=== PATIENT | male | born 1965 | race Caucasian/White ===

== ENCOUNTER 2017-07-21 23:12 | Inpatient (IN) | payer OTHER ==
[~2017-07-21] VITALS: Ht 180.3 cm; Wt 70.8 kg
[~2017-07-21 23:12] MED LIST: ASPIRIN325 M2 PO
[2017-07-21 23:36] VITALS: BP 162/81
--- NOTE | 2017-07-21 23:36 | ED GENERAL ADULT ---
History of Present Illness General Chief Complaint: General Adult Stated Complaint: "SWEATING, SHAKING, LT SIDE MIGRAIN" Vital Signs & Intake/Output Vital Signs & Intake/Output Vital Signs Date Time Temp Pulse Resp B/P B/P Pulse O2 O2 Flow FiO2 Mean Ox Delivery Rate 07/22 2335 97.7 81 18 162/81 07/21 2324 98 Room Air 07/21 2320 97.7 81 18 16281 98 Room Air Allergies Coded Allergies: No Known Allergies (05/27/17) Reconcile Medications Aspirin (Aspirin*) (Unknown Strength) TABLET (Unknown Dose) PO ONCE CHEST PAIN (Reported) Triage Note: PT FROM HOME C/O ETOH WITHDRAWL. PT STATES HE IS AN ALCOHOLIC AND DRINKS WHISKEY DAILY. PTS LAST DRINK WAS 07/20/17 AROUND [id number]. PT CANNOT REMEMBER EXACTLY HOW MUCH HE DRANK LAST NIGHT, "MAYBE A 1/2 BOTTLE" PT STATES 2X WEEKS DRINKING CONSTANTLY, PRIOR TO THOSE WEEKS PT WAS SOBER FOR A "FEW WEEKS" PER PT. PT IS DIAPHORETIC, CLAMMY, PALE IN TRIAGE. VSS. PT BROUGHT TO 7. Past History Travel History Traveled to [place] past 21 day No Medical History Neurological: NONE EENT: NONE Cardiovascular: NONE Respiratory: NONE Gastrointestinal: NONE Hepatic: NONE Renal: NONE Musculoskeletal: NONE Psychiatric: alcohol dependence, anxiety, depression Endocrine: NONE Surgical History Surgical History: non-contributory Psychosocial History What is your primary language Maltese Tobacco Use: Current Daily Use Daily Tobacco Use Amount/Type: => 5 Cigarettes daily ETOH Use: alcoholic Illicit Drug Use: denies illicit drug use Progress Plan of Care: Orders Procedure Date/time Status URINE DRUG SCREEN FOR ER ONLY 07/22 2335 Active ETHANOL 07/22 2335 Active XRY-PORTABLE CHEST XRAY 07/21 2334 Active TROPONIN LEVEL 07/21 2334 Active LIPASE 07/21 2334 Active HEPATIC FUNCTION PANEL 07/21 2334 Active CBC WITHOUT DIFFERENTIAL 07/21 2334 Active BASIC METABOLIC PANEL 07/21 2334 Active AMYLASE 07/21 2334 Active EKG 07/21 2334 Active Current Medications Sig/Vazquez Start time Last Medication Dose Stop Time Status Admin Lorazepam 2 MG ONE ONE 07/21 2344 UNVr (Ativan) 07/21 2345 Departure Departure Condition: Stable Referrals: Patient Has No Primary Care Dr (PCP/Family) Departure Forms: Customer Survey General Discharge Information
--- NOTE | 2017-07-21 23:40 | ED GENERAL ADULT ---
See Addendum History of Present Illness General Chief Complaint: General Adult Stated Complaint: "SWEATING, SHAKING, LT SIDE MIGRAIN" Source: patient Exam Limitations: no limitations Vital Signs & Intake/Output Vital Signs & Intake/Output Vital Signs Date Time Temp Pulse Resp B/P B/P Pulse O2 O2 Flow FiO2 Mean Ox Delivery Rate 07/22 1350 97.2 65 20 141/90 07/22 1347 97.2 07/22 1340 97.2 65 20 141/90 07/22 1338 97.2 65 20 141/90 96 Room Air 07/22 1105 97.9 76 18 167/86 07/22 1104 97.9 76 18 167/86 97 Room Air 07/22 0913 98.5 76 16 179/90 07/22 0905 98.5 76 16 179/90 07/22 0904 98.6 73 16 172/90 96 Room Air Room Air 07/22 0636 98.3 78 18 148/81 07/22 0635 98.3 78 18 148/81 96 Room Air 07/22 0417 98.1 78 18 174/90 07/22 0417 98.1 78 18 174/90 96 Room Air 07/22 0332 98.0 74 18 168/89 07/22 0332 98.0 74 18 168/89 97 Room Air 07/22 0238 98.0 77 18 163/92 07/22 0235 98.0 77 18 163/92 99 Room Air 07/22 0039 97.8 68 18 159/83 07/22 0038 97.8 68 18 159/83 99 Room Air 07/21 2336 97.7 81 18 162/81 07/21 2324 98 Room Air 07/21 2321 97.7 81 18 162/81 98 Room Air ED Intake and Output 07/22 0000 07/21 1200 Intake Total Output Total Balance Patient 1150 lb Weight Weight Reported by Patient Measurement Method Allergies Coded Allergies: No Known Allergies (05/27/17) Triage Note: PT FROM HOME C/O ETOH WITHDRAWL. PT STATES HE IS AN ALCOHOLIC AND DRINKS WHISKEY DAILY. PTS LAST DRINK WAS 07/20/17 AROUND [id number]. PT CANNOT REMEMBER EXACTLY HOW MUCH HE DRANK LAST NIGHT, "MAYBE A 1/2 BOTTLE" PT STATES 2X WEEKS DRINKING CONSTANTLY, PRIOR TO THOSE WEEKS PT WAS SOBER FOR A "FEW WEEKS" PER PT. PT IS DIAPHORETIC, CLAMMY, PALE IN TRIAGE. VSS. PT BROUGHT TO RM 7. Triage Nurses Notes Reviewed? yes Onset: Gradual Duration: hour(s): Timing: recent history Injury Environment: home Severity: moderate Modifying Factors: Improves With: rest. Associated Symptoms: diaphoresis HPI: 51 yo gentleman h/o etoh abuse, asthma presents with tremors, nausea, vomiting, body aches for the past day after he stopped drinking yesterday evening. He notes, "I drink a lot... all the time... I've been drinking a bit more heavily the past few weeks." He denies every having had a seizure. He is otherwise well. (Juan NETTLES,Ash Matos) Reconcile Medications Escitalopram Oxalate (Lexapro) 10 MG TABLET 1 TAB PO DAILY MENTAL HEALTH ( Reported) Gabapentin (Neurontin) (Unknown Strength) CAPSULE (Unknown Dose) PO AD UNKNOWN (Reported) Prednisone (Unknown Strength) TABLET (Unknown Dose) PO AD STEROID (Reported) Trazodone HCl (Unknown Strength) TABLET (Unknown Dose) PO AD SLEEP (Reported) (Pravin Quintanilla MD) Past History Travel History Traveled to [place] past 21 day No Medical History Any Pertinent Medical History? see below for history Neurological: NONE EENT: NONE Cardiovascular: NONE Respiratory: NONE Gastrointestinal: NONE Hepatic: NONE Renal: NONE Musculoskeletal: NONE Psychiatric: alcohol dependence, anxiety, depression Endocrine: NONE Surgical History Surgical History: non-contributory Psychosocial History What is your primary language Liberian Tobacco Use: Current Daily Use Daily Tobacco Use Amount/Type: => 5 Cigarettes daily ETOH Use: alcoholic Illicit Drug Use: denies illicit drug use Family History Hx Contributory? No (Juan NETTLES,Ash Matos) Review of Systems Review of Systems Constitutional: Reports: no symptoms. EENTM: Reports: no symptoms. Respiratory: Reports: no symptoms. Cardiovascular: Reports: no symptoms. GI: Reports: no symptoms. Genitourinary: Reports: no symptoms. Musculoskeletal: Reports: no symptoms. Skin: Reports: no symptoms. Neurological/Psychological: Reports: no symptoms. Hematologic/Endocrine: Reports: no symptoms. Immunologic/Allergic: Reports: no symptoms. All Other Systems: Reviewed and Negative (Ash Martinez MD) Physical Exam Physical Exam General Appearance: well developed/nourished, mild distress, moderate distress Head: atraumatic, normal appearance Eyes: Bilateral: normal appearance. Ears, Nose, Throat: normal pharynx, normal ENT inspection Neck: normal inspection, supple, full range of motion Respiratory: normal breath sounds, chest non-tender, no respiratory distress, quiet respiration, lungs clear Cardiovascular: regular rate/rhythm Gastrointestinal: normal bowel sounds, soft, non-tender, no organomegaly Back: normal inspection, normal range of motion Extremities: normal inspection, normal capillary refill, normal range of motion, no edema Neurologic/Psych: no motor/sensory deficits, awake, alert, oriented x 3 Skin: intact, normal color, warm/dry Core Measures ACS in differential dx? No CVA/TIA Diagnosis: No Sepsis Present: No Sepsis Focused Exam Completed? No (Juan NETTLES,Ash Matos) Progress Differential Diagnoses I considered the following diagnoses in my evaluation of the patient: alcohol detox vs electrolyte abnormality vs other. Plan of Care: Orders Procedure Date/time Status CBC WITHOUT DIFFERENTIAL 07/23 06 Active BASIC ELECTROLYTES PLUS BUN&CR 07/23 06 Active Heart Healthy Diet 07/22 B Active Patient Data 07/22 1415 Active OXYGEN SETUP (GEN) 07/22 1401 Active Saline Lock 07/22 1401 Active Admit to inpatient 07/22 1401 Active Vital Signs 07/22 1401 Active Activity/Ambulation 07/22 1401 Active Code Status 07/22 1401 Active Pathway - chart 07/21 2339 Active CIWA 07/21 233 Active CASE MANAGEMENT CONSULT 07/21 2339 Active ETHANOL 07/21 2336 Complete URINE DRUG SCREEN FOR ER ONLY 07/22 2335 Complete TROPONIN LEVEL 07/215 Complete LIPASE 07/21 2335 Complete HEPATIC FUNCTION PANEL 07/215 Complete CBC WITHOUT DIFFERENTIAL 07/21 2335 Complete BASIC METABOLIC PANEL 07/21 2335 Complete AMYLASE 07/21 2335 Complete EKG 07/21 233 Active Intake & Output 07/21 2324 Active Current Medications Sig/Vazquez Start time Last Medication Dose Stop Time Status Admin Clonidine 0.1 MG TID 07/22 09 UNVr 07/22 (Catapres) 1350 Gabapentin 300 MG Q8 07/22 09 UNVr 07/22 (Neurontin) 1350 Laboratory Tests 07/22/17 0247: Urine Opiates Screen < 100, Methadone Screen < 40, Barbiturate Screen < 60, Ur Phencyclidine Scrn < 6.00, Amphetamines Screen < 100, U Benzodiazepines Scrn < 85, Urine Cocaine Screen < 50, Urine Cannabis Screen < 5.00 07/21/172336: Anion Gap 15, Estimated GFR > 60, BUN/Creatinine Ratio 10.0, Glucose 140 H, Calcium 9.3, Total Bilirubin 1.5 H, Direct Bilirubin 0.4, AST 61 H, ALT 68, Alkaline Phosphatase 116, Troponin I < 0.01, Total Protein 7.1, Albumin 4.9, Amylase 95, Lipase 348 H, CBC w Diff NO MAN DIFF REQ, RBC 4.63 L, MCV 94.4 H, MCH 31.9 H, MCHC 33.8, RDW 14.1, MPV 8.7, Gran % 75.3 H, Lymphocytes % 18.8 L , Monocytes % 5.1, Eosinophils % 0.3, Basophils % 0.5, Absolute Granulocytes 5.5 , Absolute Lymphocytes 1.4, Absolute Monocytes 0.4, Absolute Eosinophils 0, Absolute Basophils 0, Serum Alcohol < 10.0 07/21/172335: Serum Alcohol Cancelled Diagnostic Imaging: Viewed by Me: Radiology Read. Discussed w/RAD: Radiology Read. CXR Impression: PATIENT: RONNY SILVEIRA PRESENT AGE : 51 PATIENT ACCOUNT NO: [id number] : 66 LOCATION: [facility] ORDERING PHYSICIAN: Ash Martinez MD SERVICE DATE: 07/21/17 EXAM TYPE: RAD - XRY-PORTABLE CHEST XRAY EXAMINATION: XR PORTABLE CHEST CLINICAL INFORMATION: Dyspnea COMPARISON: 05/27/2017 TECHNIQUE: Portable frontal view of the chest was obtained. FINDINGS: The lungs are clear with no focal consolidation. No evidence of pneumothorax, pulmonary edema, or pleural effusions. The cardiomediastinal silhouette is unremarkable. No acute osseous findings. IMPRESSION: No acute cardiopulmonary findings. DICTATED BY: Jean Claude Posada MD DATE/TIME DICTATED:07/21/172352 TOY PAINTER:FRANK DATE/TIME TRANSCRIBED:07/21/172352 CONFIDENTIAL, DO NOT COPY WITHOUT APPROPRIATE AUTHORIZATION. <Electronically signed in Other Vendor System> SIGNED BY: Jean Claude Posada MD 07/21/172356 Initial ED EKG: nsr, no acute changes. incomplete rbbb Hand-Off Endorsed To: Pravin Quintanilla MD Endorsed Time: 0700 Pending: consult, labs (Ash Martinez MD) Comments: Certified by case management for hospitalization. (Pravin Quintanilla MD) Departure Departure Disposition: STILL A PATIENT Condition: Stable Clinical Impression Primary Impression: Alcohol withdrawal Referrals: Patient Has No Primary Care Dr (PCP/Family) Departure Forms: Customer Survey General Discharge Information (Ash Martinez MD) Alcohol Withdrawl Admission ED Alcohol Detox Admission d/t: Acute MedCond D/T Alcohol Comments: Improved with ativan, gabapentin, clonidine. (Pravin Quintanilla MD) Critical Care Note Critical Care Note Critical Care Time: non-applicable (Juan NETTLES,Ash Matos)
[2017-07-21 23:49] LABS: ABSOLUTE BASOPHIL COUNT 0 /CUMM (0.0-0.2); ABSOLUTE EOSINOPHIL COUNT 0 /CUMM (0.0-0.7); ABSOLUTE GRANULOCYTE CT 5.5 /CUMM (1.4-6.5); ABSOLUTE LYMPH COUNT 1.4 /CUMM (1.2-3.4); ABSOLUTE MONOCYTE COUNT 0.4 /CUMM (0.10-0.60); BASOPHIL % 0.5 % (0.0-2.0); EOSINOPHIL % 0.3 % (0-5); GRANULOCYTE % 75.3 % (42.2-75.2); HEMATOCRIT 43.7 % (42-52); MEAN CORPUSCULAR HGB 31.9 PG (27.0-31.0); MEAN CORPUSCULAR HGB CONC 33.8 G/DL (33.0-37.0); MEAN CORPUSCULAR VOLUME 94.4 FL (80.0-94.0); MEAN PLATELET VOLUME 8.7 FL (7.4-10.4); PLATELET COUNT 144 /CUMM (130-400); RBC DISTRIBUTION WIDTH 14.1 % (11.5-14.5); RED BLOOD CELL CT 4.63 /CUMM (4.70-6.10); WHITE BLOOD CELL COUNT 7.3 /CUMM (4.8-10.8)
--- NOTE | 2017-07-21 23:57 | RADIOLOGY REPORT ---
EXAMINATION: XR PORTABLE CHEST CLINICAL INFORMATION: Dyspnea COMPARISON: 05/27/2017 TECHNIQUE: Portable frontal view of the chest was obtained. FINDINGS: The lungs are clear with no focal consolidation. No evidence of pneumothorax, pulmonary edema, or pleural effusions. The cardiomediastinal silhouette is unremarkable. No acute osseous findings. IMPRESSION: No acute cardiopulmonary findings.
[2017-07-22] VITALS (13 sets, daily range): BP systolic 126–179; BP diastolic 74–100
[2017-07-22] MEDS ORDERED: LEXAPRO10 M1 PO (13:57)
[2017-07-22] MEDS ORDERED: TRAZODONE HCL50 M1 PO (13:59)
[2017-07-22] MEDS ORDERED: NEURONTIN300 M1 PO (13:59)
[2017-07-22] MEDS ORDERED: PREDNISONE5 M1 PO (13:59)
--- NOTE | 2017-07-22 14:35 | History & Physical ---
Gilma Orlando MD,[facility] 07/22/17 1423: General Information and HPI MD Statement: I have seen and personally examined RONNY SILVEIRA and documented this H&P. The patient is a 51 year old M who presented with a patient stated chief complaint of sweating and shakings. Source of Information: patient History of Present Illness: Patient is 51 y M with PMH of alcohol abuse, anxiety, depression (suicidal ideation several years ago), asthma, smoking presented to the ED with chief complaint of sweating and shaking. Patient noted that he drinks about one bottle of whiskey in daily base for the last several years, he attempted several times to cut down drinking in the past with no success with increased drinking over the last few months. The last drink was whiskey again around 9pm, 07/20/17. 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 He was admitted 4 times for alcohol rehabilitation in the past, denied any alcohol related complications such as seizure or ICU admission. He was discharged from the last one a few months ago. Of note patient was last seen in ED for chest pain and was discharged after rulling out cardiac reasons. He reported anxiety, but no suicidal ideation at this time, no shortness of breathing, no chest pain. He reported smoking 1 PPD for the last many years, he also reported remote use of recreational drugs few years ago. Allergies/Medications Allergies: Coded Allergies: No Known Allergies (05/27/17) Home Med list Escitalopram Oxalate (Lexapro) 10 MG TABLET 1 TAB PO DAILY MENTAL HEALTH ( Reported) Gabapentin (Neurontin) (Unknown Strength) CAPSULE (Unknown Dose) PO AD UNKNOWN (Reported) Trazodone HCl (Unknown Strength) TABLET (Unknown Dose) PO AD SLEEP (Reported) Past History Travel History Traveled to [place] past 21 day No Medical History Neurological: NONE EENT: NONE Cardiovascular: NONE Respiratory: NONE Gastrointestinal: NONE Hepatic: NONE Renal: NONE Musculoskeletal: NONE Psychiatric: alcohol dependence, anxiety, depression Endocrine: NONE Surgical History Surgical History: non-contributory Past Family/Social History Psychosocial History ETOH Use: alcoholic Illicit Drug Use: denies illicit drug use Review of Systems Review of Systems Constitutional: Reports: see HPI. Exam & Diagnostic Data Last 24 Hrs of Vital Signs/I&O Vital Signs Date Time Temp Pulse Resp B/P B/P Pulse O2 O2 Flow FiO2 Mean Ox Delivery Rate 07/22 1350 97.2 65 20 141/90 07/22 1347 97.2 07/22 1340 97.2 65 20 141/90 07/22 1338 97.2 65 20 141/90 96 Room Air 07/22 1105 97.9 76 18 167/86 07/22 1104 97.9 76 18 167/86 97 Room Air 07/22 0913 98.5 76 16 179/90 07/22 0905 98.5 76 16 179/90 07/22 0904 98.6 73 16 172/90 96 Room Air Room Air 07/22 0636 98.3 78 18 148/81 07/22 0635 98.3 78 18 148/81 96 Room Air 07/22 0417 98.1 78 18 174/90 07/22 0417 98.1 78 18 174/90 96 Room Air 07/22 0332 98.0 74 18 168/89 07/22 0332 98.0 74 18 168/89 97 Room Air 07/22 0238 98.0 77 18 163/92 07/22 0235 98.0 77 18 163/92 99 Room Air 07/22 0039 97.8 68 18 159/83 07/22 0038 97.8 68 18 159/83 99 Room Air 07/21 2336 97.7 81 18 162/81 07/21 2324 98 Room Air 07/21 2321 97.7 81 18 162/81 98 Room Air Intake & Output 07/22 1600 07/22 0800 07/22 0000 Intake Total Output Total Balance Patient 150 lb 1150 lb Weight Weight Reported by Patient Measurement Method Physical Exam General Appearance Alert, Oriented X3, Cooperative, anxious Skin Temp/Moisture Exam: Warm/Dry Sepsis Skin Exam (color): Normal for Ethnicity HEENT Atraumatic, EOMI Cardiovascular Normal S1, Normal S2 Lungs wheezing Abdomen Soft, No Tenderness Neurological Normal Speech, Strength at 5/5 X4 Ext Extremities No Edema Last 24 Hrs of Labs/Tien: Laboratory Tests 07/22/17 0247: Urine Opiates Screen < 100, Methadone Screen < 40, Barbiturate Screen < 60, Ur Phencyclidine Scrn < 6.00, Amphetamines Screen < 100, U Benzodiazepines Scrn < 85, Urine Cocaine Screen < 50, Urine Cannabis Screen < 5.00 07/21/17 2337: Anion Gap 15, Estimated GFR > 60, BUN/Creatinine Ratio 10.0, Glucose 140 H, Calcium 9.3, Total Bilirubin 1.5 H, Direct Bilirubin 0.4, AST 61 H, ALT 68, Alkaline Phosphatase 116, Troponin I < 0.01, Total Protein 7.1, Albumin 4.9, Amylase 95, Lipase 348 H, CBC w Diff NO MAN DIFF REQ, RBC 4.63 L, MCV 94.4 H, MCH 31.9 H, MCHC 33.8, RDW 14.1, MPV 8.7, Gran % 75.3 H, Lymphocytes % 18.8 L , Monocytes % 5.1, Eosinophils % 0.3, Basophils % 0.5, Absolute Granulocytes 5.5 , Absolute Lymphocytes 1.4, Absolute Monocytes 0.4, Absolute Eosinophils 0, Absolute Basophils 0, Serum Alcohol < 10.0 07/21/17 2336: Serum Alcohol Cancelled Assessment/Plan Assessment: 51 y M presented for alcohol detox PMH of alcohol abuse, anxiety, depression (suicidal ideation several years ago), asthma, smoking VS, Ph Ex at admission: Insignificant EKG: NSR, QTc 502 Labs at admission: CBC insignificant, K 3.4, ast 61, total torrey 1.5, lipase 348, Toxicology negative Imagings at admission: CXR: no acute finding Patient was admitted to GM floor for management of following conditions: Alcohol withdrawal - admit to GM - aspitation percautions - ativan standing dose - ativan per CIWA - Banana bag, IV fluids, thiamin, folic acid, multivit - EKG tomorrow Hypokalmeia - electrolytes in AM, replete as needed Asthma: - start po prednison - inhaler - TRC nebs Chronic medical conditions: - nicotin patch - psych consult for anxiety and depression - consider SSRI could increase QTC in this patient (will get EKG again after repletion of K) - need to follow in outpatient for evaluation of chest pain considering family history positive DVT ppx: Mechanical and pharmacologic Full code REgular As Ranked By This Provider Problem List: 1. Alcohol withdrawal Core Measures/Misc (12/10) Acute Coronary Syndrome ACS Diagnosis: No Congestive Heart Failure Congestive Heart Failure Diagnosis No Cerebrovascular Accident CVA/TIA Diagnosis: No VTE (View Protocol) VTE Risk Factors Age>40 No Mechanical VTE Prophylaxis d/t N/A MechProphylax Ordered No VTE Pharm Prophylaxis d/t NA PharmProphylax ordered Sepsis (View protocol) Sepsis Present: Lalitha Jama MD,Shyanne 07/22/17 1626: Attending MD Review Statement Attending Statement Attending MD Statement: examined this patient, discuss w/resident/PA/FLAT SCREEN WORKER, agreed w/resident/PA/FLAT SCREEN WORKER, reviewed EMR data (avail), discussed with nursing, discussed with case mgmt, amended to note Attending Assessment/Plan: Patient is a 51-year-old male with history of alcohol abuse and depression presents to the emergency room with complaints of tremors. He admits to history of chronic alcohol binge and. She admits to trying various outpatient programs including AA in the past. He was recently admitted to [facility] for alcohol detoxification. Reports at that facility was started on Lexapro for management of his depressive symptoms. He admits that her depression is a trigger for his drinking. In the emergency room he presented yesterday with a CIWA score of 14. He was monitored overnight with benzodiazepine therapy while awaiting approval from his insurance company. Approval was obtained today and patient referred to the inpatient medical service for further management. Review of systems patient does admit to chest pain for which he presented to the emergency room for evaluation last month. Workup was negative for the time and was discharged. He however reports family history of coronary artery disease in his father assessment age 50. His father has had several cardiac procedures done. Currently resting comfortably but does appear agitated. Afebrile. Hemodynamically stable. General appearance: Well-developed and not in any acute distress. HEENT: Anicteric, no pallor, pupils equal and reactive. Neck: Supple with no jugular venous distention. Heart: S1-S2 regular with no audible murmur. Lungs: Adequate and symmetric air entry bilaterally with diffuse rhonchi Abdomen: Nondistended with normal bowel sounds. Soft, nontender with no palpable masses. Extremities: No pedal edema. No cyanosis. No tremors upper extremities. Skin: Intact Problems: 1. Alcohol withdrawal syndrome. 2. Hypokalemia 3. Bilateral rhonchi on exam likely secondary to COPD. 4. Depression 5. History of chest pain with family history of coronary disease Problems: - Admitted to the inpatient medical service. -Benzodiazepine therapy with Ativan 2 mg orally every 4 hours and CIWA protocol -IV hydration. Supplement potassium orally. Nicotine patch. -Begin patient on bronchodilator therapy. Okay to continue patient on oral prednisone therapy will continue for the next 5 days. - Psychiatric consultation prior to discharge for assistance in managing his depression. -Outpatient cardiology referral for appropriate risk stratification. Bindu Wheeler 07/22/17 2013: Resident Review Statement Resident Statement: examined this patient, discussed with global marketing intern, reviewed images, amended to note Other Findings: 51-year-old gentleman with past medical history of anxiety/depression daily smoker 1 pack a day, alcohol abuse, asthma, no history of alcohol withdrawal seizures with at least 3 times of inpatient rehabilitation last time was about couple of weeks ago [place] he [place] A[place] with medication for Lexapro, gabapentin, trazodone,came to the hospital with chief complaint of shaking, requesting for alcohol detox. According to the patient is been drinking 1 bottle of whiskey [place] almost every day sometimes more and sometimes wakes for a couple of weeks. He has been on and off sober since his second inpatient alcohol detox which was couple of years ago. He denies using illicit drugs recentlty. At the moment patient denies any nausea, vomiting, abdominal pain, fevers, chills. Vitals in ED were stable Alert and oriented 3 Heart S1-S2 normal no murmurs Chest bilateral wheezing No leg edema Full details above Labs are notable for potassium 3.4, bilirubin 1.5, AST 61, lipase 348 Chest x-ray unremarkable EKG is notable for QTc 500 Assessment Alcohol abuse and alcohol detox History of asthma and bilateral wheezing Mildly elevated lipase and bilirubin History of depression on Lexapro Plan Admit to general medicine floor Folate, thiamine IV hydration gently Replete potassium orally Hold Lexapro for now and check EKG in the morning Psychiatric consult in the morning TRC nebs and prednisone 40 daily for 5 days Nicotine patch P.o. Ativan every 6 2 mg IV Ativan as needed per CIKS protocol DVT prophylaxis is mechanical in on Lovenox, regular diet, Tylenol for pain, full code
--- NOTE | 2017-07-22 16:27 | Admission Certification ---
Admission Certification Certification Statement - As attending physician, I certify that at the time of - admission, based on clinical presentation, severity of - symptoms, need for further diagnostic testing and - therapeutic interventions, and risk of adverse outcomes - without in-hospital treatment, in my clinical assessment, - this patient requires an acute hospital stay for a minimum - of two nights or longer. I have also considered psychsocial - factors such as support system, advanced age, financial - issues, cognitive issues, and failed out-patient treatments, - past re-admission history, safety of patient, and lack of - compliance as applicable. Specific rationale supporting this admission is: Patient requires hospitalization for management of alcohol detox symptoms.
[2017-07-23 07:01] VITALS: BP 158/112
--- NOTE | 2017-07-23 07:10 | PN- Housestaff ---
Gilma Orlando MD,[facility] 07/23/17 0710: Subjective Follow-up For: Alcohol detox Asthma Subjective: Patient visited today, anxious looking, was sittingg in bed comfortably, was alert and oriented. No fever or chills, improved shortness of breathing, no chest pain, no other events. - at 2 pm patient requested to be discharged, patient was evaluated with attending. disscused, patient agreed to stay after talking to psych, patient can leave AMA if family present to accompany, will sing out re-evalaute if patient wants to leave again. Review of Systems Constitutional: Reports: see HPI. Objective Last 24 Hrs of Vital Signs/I&O Vital Signs Date Time Temp Pulse Resp B/P B/P Pulse O2 O2 Flow FiO2 Mean Ox Delivery Rate 07/23 1513 98.0 95 20 162/94 100 Room Air 07/23 1400 90 18 162/90 07/23 1200 86 18 142/86 07/23 1000 80 18 142/82 07/23 1000 80 142/82 07/23 0815 99 Room Air 07/23 0800 97 07/23 0701 97.8 79 20 158/112 96 07/23 0000 Room Air 07/22 2139 98.5 72 20 166/100 92 07/22 2136 Room Air Room Air 07/22 1838 98.6 72 20 142/92 95 Room Air 07/22 1830 98.6 72 20 142/92 07/22 1757 99.2 75 18 126/74 07/22 1708 99.2 75 18 126/74 94 Room Air Intake & Output 07/23 1600 07/23 0800 07/23 0000 Intake Total 1040 120 Output Total 900 Balance 140 120 Intake, IV 800 Intake, Oral 240 120 Number 1 Bowel Movements Output, Urine 900 Patient 156 lb 150 lb Weight Weight Reported by Patient Measurement Method Physical Exam General Appearance: Alert, Oriented X3, Cooperative, No Acute Distress, anxious Skin: No Significant Lesion Skin Temp/Moisture Exam: Warm/Dry Sepsis Skin Exam (color): Normal for Ethnicity HEENT: Atraumatic Cardiovascular: Normal S1, Normal S2 Lungs: wheezing Abdomen: Soft, No Tenderness Current Medications: Current Medications Sig/Vazquez Start time Last Medication Dose Route Stop Time Status Admin Acetaminophen 650 MG Q6P PRN 07/22 1530 AC 07/23 PO 1009 Albuterol Sulfate 3 ML EVERY 4 HRS/AWAKE 07/23 0800 AC 07/23 INH 1127 Enoxaparin Sodium 40 MG DAILY 07/23 0900 AC 07/23 SC 0854 Folic Acid 0 .STK-MED ONE 07/22 1754 DC PO Folic Acid 1 MG DAILY 07/22 1457 AC 07/23 PO 0855 Influenza Virus 0.5 ML ONCE ONE 07/22 1915 DC 07/22 Vaccine IM 07/22 191 2155 Ipratropium [place] 2.5 ML EVERY 4 HRS/AWAKE 07/23 0800 AC INH Lactated Ringer's 1,000 ML Q10H 07/22 1915 DC 07/22 IV 07/23 0514 2003 Lorazepam 1.5 MG Q4 07/23 1000 AC 07/23 PO 1341 Lorazepam 2 MG Q4 07/22 2200 DC 07/23 PO 0511 Lorazepam 2 MG Q6 07/22 1800 DC 07/22 PO 1755 Lorazepam 0 .STK-MED ONE 07/22 1754 DC PO Lorazepam 0 Q1P PRN 07/22 1600 AC 07/23 IV 1443 Methylprednisolone 40 MG Q8 07/23 1200 DC 07/23 IV 1246 Nicotine 21 MG DAILY 07/22 1845 AC 07/23 TOP 0853 Patient Medication 1 ED ONE ONE 07/23 1515 DC Teaching ED 07/23 1516 Potassium Chloride 0 .STK-MED ONE 07/22 1754 DC PO Potassium Chloride 40 MEQ BID 07/22 1615 DC 07/22 PO 07/22 2101 2153 Prednisone 0 .STK-MED ONE 07/22 1754 DC PO Prednisone 40 MG DAILY 07/22 1600 AC 07/23 PO 0855 Thiamine HCl 0 .STK-MED ONE 07/22 1754 DC PO Thiamine HCl 100 MG DAILY 07/22 1456 AC 07/23 PO 0855 Assessment/Plan Assessment: 51 y M presented for alcohol detox PMH of alcohol abuse, anxiety, depression (suicidal ideation several years ago), asthma, smoking VS, Ph Ex at admission: Insignificant EKG: NSR, QTc 502 Labs at admission: CBC insignificant, K 3.4, ast 61, total torrey 1.5, lipase 348, Toxicology negative Imagings at admission: CXR: no acute finding Patient was admitted to floor for management of following conditions: Alcohol withdrawal - admit to - aspitation percautions - ativan standing dose - ativan per CIWA - Banana bag, IV fluids, thiamin, folic acid, multivit - EKG tomorrow Hypokalmeia - repleted Asthma: - start po prednison - no IV solumedrol due to anxiety - inhaler - TRC nebs Chronic medical conditions: - nicotin patch - psych consult for anxiety and depression - consider SSRI could increase QTC in this patient (will get EKG again after repletion of K) - repeated EKG QTC was 475 - need to follow in outpatient for evaluation of chest pain considering family history positive DVT ppx: Mechanical and pharmacologic Full code REgular Problem List: 1. Alcohol withdrawal Pain Ratin Pain Location: Continue current plan Pain Goal: Pain 4 or less Pain Plan: continue current medication Tomorrow's Labs & Rationales: CBC BEP Evita NETTLES,Shyanne 07/23/17 1200: Attending MD Review Statement Attending Statement Attending MD Statement: examined this patient, discuss w/resident/PA/ROTARY DRILLER, agreed w/resident/PA/ROTARY DRILLER, reviewed EMR data (avail), discussed with nursing, discussed with case mgmt, amended to note Attending Assessment/Plan: Patient seen and examined. Resting comfortably not in any acute distress. No issues overnight by nursing staff. CIWA score has improved significantly compared to presentation. On exam he is not agitated or tremulous. He denies shortness of breath or cough however on examination he has diffuse rhonchi bilaterally. This is significantly increased from presentation. Recommendations: -Taper down benzodiazepine therapy. Transition to Ativan 1.5 mg orally every 4 hours. -Mobilize patient as tolerated. -Begin patient on Solu-Medrol IV. Bronchodilator therapy with albuterol and Atrovent 4 times a day [id number]. -Repeat serum chemistry and CBC in a.m. if there is a change in his clinical status
[2017-07-23 08:02] LABS: ABSOLUTE BASOPHIL COUNT 0 /CUMM (0.0-0.2); ABSOLUTE EOSINOPHIL COUNT 0 /CUMM (0.0-0.7); ABSOLUTE GRANULOCYTE CT 5.4 /CUMM (1.4-6.5); ABSOLUTE LYMPH COUNT 0.9 /CUMM (1.2-3.4); ABSOLUTE MONOCYTE COUNT 0.3 /CUMM (0.10-0.60); BASOPHIL % 0.1 % (0.0-2.0); EOSINOPHIL % 0 % (0-5); HEMATOCRIT 41.9 % (42-52); MEAN CORPUSCULAR HGB 32.9 PG (27.0-31.0); MEAN CORPUSCULAR VOLUME 94.1 FL (80.0-94.0); MEAN PLATELET VOLUME 9.9 FL (7.4-10.4); PLATELET COUNT 128 /CUMM (130-400); RBC DISTRIBUTION WIDTH 13.7 % (11.5-14.5); RED BLOOD CELL CT 4.45 /CUMM (4.70-6.10); WHITE BLOOD CELL COUNT 6.6 /CUMM (4.8-10.8)
[2017-07-23 10:00] VITALS: BP 142/82
[2017-07-23 12:00] VITALS: BP 142/86
[2017-07-23 14:00] VITALS: BP 162/90
[2017-07-23 15:13] VITALS: BP 162/94
--- NOTE | 2017-07-23 15:59 | Cons- Psychiatry ---
Psychiatric Consult Date of Consult: 07/23/17 Reason for Consult: "Anxiety depression" History of Present Illness: 51 y.o., , domiciled male presents from home 07/21/17 @ 2323 with a CC of requesting alcohol detox. He has been drinking one fifth to one liter of [place] whisky daily for two weeks. Last drink was 07/20/17 @ 3580-9850. He had previously been sober for 2 weeks after discharge from [facility] rehab. Prior to that, he had 15 months sober, ending in February 2017, when he rean into a former girlfriend. The patient reports that he was told his evaluation at [facility] was suggestive of autism, and that he was supposed to have further testing for this. He reports that he often misses social cues, for example. 07/21/17: Utox negative; serum alcohol <10 upon admission. 07/21/17: Potassium 3.4L, sodium 137, BUN 6L/Cr 0.6L, glucose 140H, total bilirubin 1.5H, AST 61H/ALT 68, lipase 348H He reports he has been taking Lexapro 10 mg PO daily since it was started at [facility], but he does not remember taking it on Sunday07/20/17, and has not had it since. CIWA as of 07/23/17 @ 1445: 92-3-0-5-4-0-7-7-0-5-9-13-8-7-4-7 VS 07/23/17 @ 1400: 162/90, 90HR, 98.0, 18RR, 100% RA As of 1445: Lorazepam 1 mg PRN and 11 mg scheduled in the last 24 hours. FHx: Father of Alzheimer's disease and pulmonary embolism. Mother 3 years ago of metasticized (Stomach) bone cancer and pulmonary embolism. PsychSHx: He lives at home with his ex-, his 16 y.o. son, who is studying electronics at [employer], and his cousin, whose car he uses to get to work sometimes. He has a job at [employer] in [place] that supported him going to [facility]. When he returned to work, he had a flat tire and was late; one nuclear medicine supervisor wanted to fire him, and another one was more understanding. He does not know if he still has the job, but reports that being in a program will help him get his job reinstated. 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 He was admitted 4 times for alcohol rehabilitation in the past, denied any alcohol related complications such as seizure or ICU admission. He was discharged from the last one a few months ago." Allergies: Coded Allergies: No Known Allergies (05/27/17) Current Medications: Current Medications Sig/Vazquez Start time Last Medication Dose Route Stop Time Status Admin Acetaminophen 650 MG Q6P PRN 07/22 1530 AC 07/23 PO 1009 Albuterol Sulfate 3 ML EVERY 4 HRS/AWAKE 07/23 0800 AC 07/23 INH 1127 Enoxaparin Sodium 40 MG DAILY 07/23 0900 AC 07/23 SC 0854 Folic Acid 0 .STK-MED ONE 07/22 1754 DC PO Folic Acid 1 MG DAILY 07/22 1457 AC 07/23 PO 0855 Influenza Virus 0.5 ML ONCE ONE 07/22 1915 DC 07/22 Vaccine IM 07/22 1916 2155 Ipratropium [place] 2.5 ML EVERY 4 HRS/AWAKE 07/23 0800 AC INH Lactated Ringer's 1,000 ML Q10H 07/22 1915 DC 07/22 IV 07/23 0514 2003 Lorazepam 1.5 MG Q4 07/23 1000 AC 07/23 PO 1341 Lorazepam 2 MG Q4 07/22 2200 DC 07/23 PO 0511 Lorazepam 2 MG Q6 07/22 1800 DC 07/22 PO 1755 Lorazepam 0 .STK-MED ONE 07/22 1754 DC PO Lorazepam 0 Q1P PRN 07/22 1600 AC 07/23 IV 1443 Methylprednisolone 40 MG Q8 07/23 1200 DC 07/23 IV 1246 Nicotine 21 MG DAILY 07/22 1845 AC 07/23 TOP 0853 Patient Medication 1 ED ONE ONE 07/23 1515 DC Teaching ED 07/23 1516 Potassium Chloride 0 .STK-MED ONE 07/22 1754 DC PO Potassium Chloride 40 MEQ BID 07/22 1615 DC 07/22 PO 07/22 2101 2153 Prednisone 0 .STK-MED ONE 07/22 1754 DC PO Prednisone 40 MG DAILY 07/22 1600 AC 07/23 PO 0855 Thiamine HCl 0 .STK-MED ONE 07/22 1754 DC PO Thiamine HCl 100 MG DAILY 07/22 1456 AC 07/23 PO 0855 Past History Past Medical History Neurological: NONE EENT: NONE Cardiovascular: NONE Respiratory: asthma Gastrointestinal: NONE Hepatic: NONE Renal: NONE Musculoskeletal: NONE, R FOOT/ANKLE SURGERY Psychiatric: alcohol dependence, anxiety, depression, R/O autism Endocrine: NONE Past Surgical History Surgical History: non-contributory Psychosocial History Strengths/Capabilities: With support from home, he would be motivated for treatment. His ex-, with whom he lives, tried to talk him out of going to [facility] while driving him to the rehab. Physical Limitations (Interventions): Nursing reported unsteady gait earlier today. Psychiatric Treatment History Psych Treatment Psychiatric Treatment Yes Inpatient Treatment Yes Outpatient Treatment No Location of Treatment [facility] [place] Reason for Treatment Depression, anxiety Dates of Treatment Several months ago in 2018 Response to Treatment The patient reports improvement in depression and anxiety on Lexapro Diagnosis: Alcohol use disorder, recurrent, severe Probable underlying depressive disorder R/O Autism spectrum disorder Risk Factors: substance abuse, male, limited support Substance Use/Abuse History Drug Use/Abuse Substances Used/Abused Yes Substance Used/Abused Alcohol First Use Not evaluated Last Used 07/20/17 2100 How much used/taken Unknown For how long Daily Substance Abuse Treatment Substance Abuse Treatment Past Substance Abuse TX Yes Inpatient Treatment Yes Outpatient Treatment No Location of Treatment [facility] Reason for Treatment Alcohol abuse and dependence Dates of Treatment Several months ago Response to Treatment Unknown Assessment/Plan Mental Status Orientation: Person, Place, Situation Affect: Anxious, Constricted Speech: Loud, Soft Neuro-vegetative: Helpless Mental Status Exam: Alert and oriented to person, place, reason for admission, day, month, year. He reports he feels safe here. He denies suicidal or homicidal ideation. The patient reports a history of one suicide attempt, "I used a butter knife to cut myself. I was in my 20's and had other knives, I knew it wouldn't work." He did not receive treatment for this, and reports that he had a small incision with a small amount of blood. He denies use of other drugs, but states that he had used cocaine and had quit smoking cannabis 25 years ago. He reports his psychaitric diagnosis is severe diagnosis. Lab Results: Laboratory Tests 07/23 0715 Chemistry Sodium (137 - 145 mmol/L) 135 L Potassium (3.5 - 5.1 mmol/L) 4.0 Chloride (98 - 107 mmol/L) 103 Carbon Dioxide (22 - 30 mmol/L) 22 Anion Gap (5 - 16) 9 BUN (9 - 20 mg/dL) 9 Creatinine (0.7 - 1.2 mg/dL) 0.5 L Estimated GFR (>60 ml/min) > 60 BUN/Creatinine Ratio (7 - 25 %) 18.0 Total Bilirubin (0.2 - 1.3 mg/dL) 1.7 H Direct Bilirubin (< 0.4 mg/dL) 0.4 AST (17 - 59 U/L) 33 ALT (21 - 72 U/L) 46 Alkaline Phosphatase (< 127 U/L) 89 Total Protein (6.3 - 8.2 g/dL) 6.3 Albumin (3.5 - 5.0 g/dL) 4.0 Hematology CBC w Diff NO MAN DIFF REQ WBC (4.8 - 10.8 /CUMM) 6.6 RBC (4.70 - 6.10 /CUMM) 4.45 L Hgb (14.0 - 18.0 G/DL) 14.7 Hct (42 - 52 %) 41.9 L MCV (80.0 - 94.0 FL) 94.1 H MCH (27.0 - 31.0 PG) 32.9 H MCHC (33.0 - 37.0 G/DL) 35.0 RDW (11.5 - 14.5 %) 13.7 Plt Count (130 - 400 /CUMM) 128 L MPV (7.4 - 10.4 FL) 9.9 Gran % (42.2 - 75.2 %) 82.0 H Lymphocytes % (20.5 - 51.1 %) 13.5 L Monocytes % (1.7 - 9.3 %) 4.4 Eosinophils % (0 - 5 %) 0 Basophils % (0.0 - 2.0 %) 0.1 Absolute Granulocytes (1.4 - 6.5 /CUMM) 5.4 Absolute Lymphocytes (1.2 - 3.4 /CUMM) 0.9 L Absolute Monocytes (0.10 - 0.60 /CUMM) 0.3 Absolute Eosinophils (0.0 - 0.7 /CUMM) 0 Absolute Basophils (0.0 - 0.2 /CUMM) 0 Diffential Diagnosis: Alcohol use disorder, recurrent, severe Probable underlying depressive disorder R/O Autism spectrum disorder Impression: The patient has expressed a wish to leave. He is alert, oriented, mildly tremulous. He verbalizes understanding if he leaves AMA, he will not be given lorazepam to take home, which is controlling his alcohol withdrawal symptoms, that he will be at risk for seizure or onset of delirium tremens or . He is not suicidal, nor psychotic, nor currently delirious, and may leave AMA. He verbalizes that if he leaves [facility], he will not be able to attend the [facility] program, which may be able to write a letter for his employer to help with job reinstatment. The team had concerns about the patients ambulation. If the patient insists on leaving AMA, the team would like to speak with whoever arrives to give the patient a ride, to advise them of the risks and what to monitor for, such as seizure. Provisional Treatment Plan: 1. If the patient elects to stay, continue the alcohol detox benzodiazepine taper protocol, currently at lorazepam 1.5 mg PO q 4 hours. If CIWA scores are dropping and VS are stable, may decrease the daily divided scheduled dosing by 20% of 14 mg, approximately 3 mg, the latest 24 hour total: Lorazepam 2 mg PO q 4 hours for 5 doses (12.0 mg), then Lorazepam 1.5 mg PO q 4 hours for 5 doses (9.0 mg), then Lorazepam 1.5 mg PO q 6 hours for 5 doses (6.0 mg), then Lorazepam 1 mg PO q 6 hours for 5 doses (4 mg), then Lorazepam 0.5 mg PO q 6 hours for 5 doses (2 mg) then stop 2. Restart escitalopram/Lexapro, only if assured followup. 3. If the patient leaves AMA, do not discharge with benzodiazepines in hand. He verbalizes understanding that we are concerned about use of these medications along with alcohol, which may lead to respiratory arrest, and also that he will be at increased risk of seizure and . He currently denies symptoms of acute alcohol withdrawal syndrome, including hallucinosis and delirium tremens. 4. Continue daily thiamine, folic acid and MVI. 5. If the patient becomes delirious, or if he begins to score CIWA consistently above 15, or if he requires more than 16 mg lorazepam in a 24 hours period, please consider transfer to ICU with a lorazepam drip. 6. Social work consult has resulted in an intake at the [facility] program on Sunday , 07/30/17 at 2PM, if the patient stays to finish his current alcohol detox, and does not leave AMA. We will continue to follow along with you. Thank you for this consult.
--- NOTE | 2017-07-23 17:02 | Patient Discharge Instructions ---
Discharge Instructions General Discharge Information You were seen/treated for: Alcohol detox asthma Watch for these problems: dizziness, seizure, shortness of breathing, hallucination, fever, or worsening of any other symptoms Special Instructions: Please note that you may have severe complications related to alcohol withdrawal. Your discharge from hospital will be against medical advice. Diet Continue normal diet: Yes Activity Full Activity/No Limits: No Activity Self Limited: Yes Acute Coronary Syndrome Inclusion Criteria At DC or during hospital stay patient has or had the following: ACS DIAGNOSIS No Discharge Core Measures Meds if any: Prescribed or Continued at Discharge Meds if any: NOT Prescribed or Continued at Discharge Congestive Heart Failure Inclusion Criteria At DC or during hospital stay patient has or had the following: CHF DIAGNOSIS No Discharge Core Measures Meds if any: Prescribed or Continued at Discharge Meds if any: NOT Prescribed or Continued at Discharge Cerebrovascular accident Inclusion Criteria At DC or during hospital stay patient has or had the following: CVA/TIA Diagnosis No Discharge Core Measures Meds if any: Prescribed or Continued at Discharge Meds if any: NOT Prescribed or Continued at Discharge Venous thromboembolism Inclusion Criteria VTE Diagnosis No VTE Type NONE VTE Confirmed by (Test) NONE Discharge Core Measures - Per Current guidelines, there needs to be overlap - treatment for the first 5 days of Warfarin therapy. - If discharged on Warfarin prior to 5 days of - overlap therapy, the patient will need to be - assessed for post discharge needs including - *Post discharge parental anticoagulation - *Warfarin and/or parental anticoagulation education - *Follow up date to check INR post discharge At least 5 days overlap therapy as Inpatient No Meds if any: Prescribed or Continued at Discharge Note: Overlap Therapy is Warfarin and Anticoagulant Meds if any: NOT Prescribed or Continued at Discharge
--- NOTE | 2017-07-23 18:05 | Event Note ---
Event Note Event Note: Patient was evaluated by psych, he verbalized his wishes to leave against medical advise. Patient is capable to take decisions. We discussed the risk of leaving before finishing his detox. Patient's ex- is at bedside and both verbalized understanding of the risk of seizure and . Patient signed AMA and left without any prescription in hand.
--- NOTE | 2017-08-06 15:21 | Discharge Summary ---
Visit Information Visit Dates Admission Date: 07/22/17 Discharge Date: 07/23/17 Hospital Course Course Attending Physician: Shyanne Jama MD Primary Care Physician: Patient Has No Primary Care Dr Hospital Course: 51 y M presented for alcohol detox H of alcohol abuse, anxiety, depression (suicidal ideation several years ago), asthma, smoking VS, Ph Ex at admission: Insignificant EKG: NSR, QTc 502 Labs at admission: CBC insignificant, K 3.4, ast 61, total torrey 1.5, lipase 348, Toxicology negative Imagings at admission: CXR: no acute finding Patient was admitted to GM floor for management of following conditions: Alcohol withdrawal Patient was admitted to general medicine floor, aspirations precautions replaced , Ativan standing note and Ativan. CIWA were administered. Banana bag, IV fluids, thiamin, folic acid, multivit were administered. In the second day patient requested to be discharged. Patient was not considered to be medically stable to be discharge. Psychology consult was placed and patient was found to be competent to make medical decisions. Risks related to leaving the hospital was explained including but not limited to seizure, loss of consciousness, dizziness and potential . Family member, ex- was present at the bedside for safe discharge. Patient left hospital AMA. Hypokalmeia repleted Asthma: By mouth prednisone was started, IV Solu-Medrol was held due to patient's anxiety. Inhalers, TRC nebs were administered. Patient left hospital AMA. Allergies: Coded Allergies: No Known Allergies (05/27/17) Disposition Summary Disposition Principal Diagnosis: Alcohol withdrawal Additional Diagnosis: Hypokalemia Discharge Disposition: left against medical adv Discharge Instructions General Discharge Information Code Status: Full Code Patient's Diet: Regular Patient's Activity: As tolerated Follow-Up Instructions/Appts: Please note that you may have severe complications related to alcohol withdrawal. Your discharge from hospital will be against medical advice. Medications at Discharge Discharge Medications: Continue taking these medications: Escitalopram Oxalate (Lexapro) 10 MG TABLET 1 Tablet ORAL DAILY Comments: NOT GIVEN IN HOSPITAL Gabapentin (Neurontin) (Unknown Strength) CAPSULE Unknown Dose ORAL As Directed Comments: Last Taken: 07/22/17 Time: 1:58PM Trazodone HCl (Trazodone HCl) (Unknown Strength) TABLET Unknown Dose ORAL As Directed Comments: NOT GIVEN IN HOSPITAL Copies To: Shyanne Jama MD Attending MD Review Statement Documenting Attending: Shyanne Jama MD
== END 2017-07-23 18:00 | disposition left against medical advice (07) | DRG 770 ==
LOC: ERH 23:12 → 2NB 07-22 14:01 → ERHI 07-22 14:01 → ENRESERV 07-22 14:35 → ENTRNSPT 07-22 18:08 → EDTRNSPTSTS 07-22 18:18 → 2NB 07-22 18:30 → CMPTRNSPT 07-22 18:35 → 2NB 07-23 18:00
PROVIDERS: Internal Medicine; Pediatrics
DX: F10.239 Alcohol dependence with withdrawal, unspecified (principal); F17.210 Nicotine dependence, cigarettes, uncomplicated; E87.6 Hypokalemia; F41.9 Anxiety disorder, unspecified; F32.9 Major depressive disorder, single episode, unspecified; J45.909 Unspecified asthma, uncomplicated
CPT/HCPCS: 2NSBP; 36592; 71045; 80307; 82436; 93005; 93010; 96374; 96375; 99233; G0480; J0131; J1650; J2405; J2920; J3490; J7120; Q2036